=== PATIENT | male | born 2005 | race Caucasian/White ===

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

== ENCOUNTER 2025-04-12 20:13 | Emergency (ER) | payer OTHER, SELFPAY ==
[2025-04-12 20:29] VITALS: BP 140/62; PULSE 108; RESP 16; TEMP 37.2; O2SAT 100; BMI 33.5
--- NOTE | 2025-04-12 20:41 | ED_ITS ---
HPI - Ear Problem General Chief complaint: Ear Stated complaint: R ear pn, 2days Time Seen by Provider: 04/12/25 20:29 Source: patient Mode of arrival: Ambulatory History of Present Illness HPI Narrative: 19-year-old male patient, otherwise healthy, who complains of right earache for 2 days with no fever, chills or URI symptoms. No recent swimming. Related Data Previous Rx's ?Medication ?Instructions ?Recorded amoxicillin 500 mg capsule 500 mg PO TID #21 caps 08/10 02/03 amoxicillin 875 mg tablet 875 mg PO BID 7 days #14 tab s 04/12/25 Allergies Allergy/AdvReac Type Severity Reaction Status Date / Time No Known Drug Allergies Allergy Verified 08/27/24 21:09 Review of Systems Review of Systems ROS Unobtainable: All systems reviewed & are unremarkable except as noted in HPI and below ENT Ears, Nose, Mouth, and Throat: Reports as per HPI Patient History Social History Smoking Status: Never smoker Smoking Status: Never smoker Exam Narrative Exam Narrative: General: Alert and conversant. No distress. Appears well nourished and well hydrated Craniofacial: No evidence of trauma. Nontender and no swelling. Eyes: PERRLA EOMI conjunctiva clear HEENT: Right tragus and matting press tender with tympanic membrane dull and thickened. No erythema. Left ear exam unremarkable. Oropharynx clear with no swelling, exudate or asymmetry of the pharynx. Nares clear. No sinus tenderness Neck: No tenderness or adenopathy. No meningismus. Lungs: Clear to auscultation with good air movement. No wheezing, rales or rhonchi. No respiratory distress Neuro: Alert and oriented. Cranial nerves, motor, sensory and cerebellar all grossly intact. No focal deficit Skin: Warm and normal color. No rashes Psychological: Normal affect and interaction. No evidence of delusion or psychosis. Normal mood. Initial Vital Signs Initial Vital Signs: Vital Signs Temperature 98.9 F 04/12/25 20:29 Pulse Rate 108 H 04/12/25 20:29 Respiratory Rate 16 04/12/25 20:29 Blood Pressure 140/62 04/12/25 20:29 Pulse Oximetry 100 04/12/25 20:29 Oxygen Delivery Method Room Air 04/12/25 20:29 Course Orders Ordered: Discontinued Medications Amoxicillin/Clavulanate Potassium (Amoxicillin/Clav 875/125 Mg) 1 tab PO NOW ONE Stop: 04/12/25 20:37 Ciprofloxacin/Dexamethasone (Ciprofloxacin/Dexameth Otic Susp) 4 drops EAR- RIGHT NOW ONE Stop: 04/12/25 20:37 Vital Signs Vital signs: Vital Signs - 8 hr 04/12/25 20:29 Temperature 98.9 F Pulse Rate 108 H Respiratory Rate 16 Blood Pressure 140/62 Pulse Oximetry 100 Oxygen Delivery Method Room Air Medical Decision Making MDM Narrative Medical decision making narrative: Patient has symptoms and physical exam is findings consistent with right otitis externa and otitis media without systemic involvement. Plan will be Ciprodex drops and amoxicillin 875 b.i.d. for 1 week. Follow up with primary care if not improving. Discharge Plan Departure Patient Disposition: Home Clinical Impression: Otitis externa, Otitis media Instructions: Middle Ear Infection, DI for Otitis Externa Activity Restrictions/Additional Instructions: Plan: Amoxicillin twice a day for 7 days Continue Ciprodex drops twice a day until symptoms resolve but no more than 7 days. [id number] pain medicine. Follow up with your doctor if not improving. Prescriptions: New amoxicillin 875 mg tablet 875 mg PO BID 7 Days Qty: 14 0RF No Action amoxicillin 500 mg capsule 500 mg PO TID Qty: 21 0RF Referrals: Miscellaneous,Doctor, [Primary Care Provider, Medical] Stand Alone Forms: Patient Portal/API
[2025-04-12] MEDS: AMOXICILLIN/CLAV 875/125 MG 1 TAB PO (20:44)
[2025-04-12] MEDS: CIPROFLOXACIN/DEXAMETH OTIC SUSP 4 DROPS EAR-RIGHT (20:44)
== END 2025-04-12 20:50 | disposition home or self-care (01) ==
PROVIDERS: Emergency Provider Emergency Medicine
DX: H60.91 Unspecified otitis externa, right ear (principal); H66.91 Otitis media, unspecified, right ear
CPT/HCPCS: 99283